=== PATIENT | male | born 1960 | race Caucasian/White ===

== ENCOUNTER 2017-01-11 17:30 | Emergency (ER) | payer OTHER ==
[2017-01-11 17:42] VITALS: O2SAT 98
--- NOTE | 2017-01-11 18:26 | ERPHSYRPT ---
- History of Present Illness Time Seen by Provider: 01/11/17 18:15 Source: patient Exam Limitations: no limitations Patient Subjective Stated Complaint: PT REPORTS HAVING A SORE ON LEFT KNEE TOPHER 1 WK AGO-PICKED IT ET THEN OVER THE LAST FEW DAYS KNEE HAS BECOME SWOLLEN-RED WARM ET TENDER-CLEAR DRAINAGE Triage Nursing Assessment: REDNESS SWELLING NOTED TO LEFT KNEE-PT PINK WARME T DRY-A & O X 3-RESP EASY Physician History: The patient is a 56-year-old male with his complaining of of increasingly red and swollen tender left knee for one week. About a week ago he picked a pimple on his knee and since then it has progressively gotten worse. He has a long history of having abscesses under his armpits and in his groin. He also has a past medical history of hypertension. There was no drainage from the site this week. Method of Injury: other (abscess) Occurred: last week Quality: throbbing Severity of Pain-Max: moderate Severity of Pain-Current: moderate Lower Extremities Pain: knee: left Modifying Factors: Improves With: other (pt tried keflex without improvement) Allergies/Adverse Reactions: sulfamethoxazole [From Bactrim] Allergy (Verified 01/11/17 17:42) trimethoprim [From Bactrim] Allergy (Verified 01/11/17 17:42) Home Medications: Lisinopril/Hydrochlorothiazide [Lisinopril-Hctz 20-25 mg Tab] 1 each PO DAILY [History] Naproxen 500 mg PO BID 05/26/15 [History] Hx Tetanus, Diphtheria Vaccination/Date Given: No Hx Influenza Vaccination/Date Given: No Hx Pneumococcal Vaccination/Date Given: No Immunizations Up to Date: Yes - Review of Systems Constitutional: Fever Eyes: No Symptoms Ears, Nose, & Throat: No Symptoms Respiratory: No Cough, No Dyspnea Cardiac: No Chest Pain, No Edema, No Syncope Abdominal/Gastrointestinal: No Abdominal Pain, No Nausea, No Vomiting, No Diarrhea Genitourinary Symptoms: No Dysuria Musculoskeletal: Joint Swelling, No Back Pain, No Neck Pain Skin: Rash Neurological: No Dizziness, No Focal Weakness, No Sensory Changes Psychological: No Symptoms Endocrine: No Symptoms Hematologic/Lymphatic: No Symptoms Immunological/Allergic: No Symptoms All Other Systems: Reviewed and Negative - Past Medical History Pertinent Past Medical History: Yes Cardiac History: Hypertension Other Medical History: CHRONIC BACK PAIN - Past Surgical History Past Surgical History: No - Social History Smoking Status: Never smoker Exposure to second hand smoke: No Drug Use: none Patient Lives Alone: No - Nursing Vital Signs Nursing Vital Signs: Initial Vital Signs Temperature 98.2 F Temperature Source Oral Pulse Rate 92 Respiratory Rate 20 Blood Pressure [Right Arm] 118/78 Pain Intensity 0 - Physical Exam General Appearance: alert Eyes, Ears, Nose, Throat Exam: moist mucous membranes Neck Exam: non-tender, supple Cardiovascular/Respiratory Exam: chest non-tender, normal breath sounds, regular rate/rhythm, no respiratory distress Gastrointestinal/Abdominal Exam: non-tender, guarding Back Exam: normal inspection, No vertebral tenderness Hips Exam: bilateral: normal inspection Legs Exam: bilateral leg: normal inspection Knees Exam: right knee: normal inspection, left knee: pain, soft tissue tenderness, swelling, other (Examination of the left knee shows a healing scab over the patella with significant surrounding erythema in the soft tissue and edema of the soft tissue both on the patella skin and the surrounding skin. It is not appear to be any joint effusion at this time. The soft tissue above the patella is warm as well.) Ankle Exam: bilateral ankle: normal inspection Foot Exam: bilateral foot: normal inspection Neuro/Tendon Exam: normal sensation, normal motor functions Mental Status Exam: alert, oriented x 3, cooperative Skin Exam: rash (as described for left knee exam) SpO2 Interpretation: normal SpO2: 98 Oxygen Delivery: Room Air Ordered Tests: Active Orders 24 hr Category Date Time Status IV Insertion STAT Care 01/11/17 18:33 Active BMP Stat Lab 01/11/17 18:50 Received CBC W DIFF Stat Lab 01/11/17 18:50 Completed Lactic Acid Urgent Lab 01/11/17 18:33 Completed Medication Summary Generic Name Dose Route Start Last Admin Trade Name Freq PRN Reason Stop Dose Admin Clindamycin HCl/Dextrose 50 mls @ 100 mls/hr 01/11/17 18:57 01/11/17 18:59 Clindamycin-D5w 900 Mg/50 Ml IV 01/11/17 19:26 100 mls/hr STAT ONE Administration Discontinued Medications Generic Name Dose Route Start Last Admin Trade Name Freq PRN Reason Stop Dose Admin Clindamycin Phosphate 600 mg 01/11/17 18:34 01/11/17 18:57 Cleocin Phosphate Iv 600 Mg/4 Ml IV 01/11/17 18:35 Not Given ONCE STA Clindamycin HCl/Dextrose Confirm 01/11/17 18:59 Clindamycin-D5w 900 Mg/50 Ml Administered 01/11/17 19:00 Dose 50 mls @ ud IV .STK-MED ONE Lab/Rad Data: Laboratory Result Diagrams 01/11/17 18:50 Laboratory Results 01/11/17 01/11/17 Range/Units 18:50 18:33 WBC 11.7 H (4.0-10.5) K/mm3 RBC 4.96 (4.1-5.6) M/mm3 Hgb 15.1 (12.5-18.0) gm/dl Hct 45.4 (42-50) % MCV 91.5 (78-100) fl MCH 30.4 (26-32) pg MCHC 33.3 (32-36) g/dl RDW 13.4 (11.5-14.0) % Plt Count 154 (150-450) K/mm3 MPV 12.3 H (6-9.5) fl Gran % 80.6 H (36.0-66.0) % Lymphocytes % 7.7 L (24.0-44.0) % Monocytes % 9.1 (0.0-12.0) % Eosinophils % 2.3 (0.00-5.0) % Basophils % 0.3 (0.0-0.4) % Basophils # 0.03 (0-0.4) Lactic Acid 1.4 (0.4-2.0) - Progress Progress: unchanged Counseled pt/family regarding: lab results, diagnosis, need for follow-up, rad results - Departure Time of Disposition: 19:04 Departure Disposition: Home Clinical Impression: Cellulitis Condition: Stable Critical Care Time: No Additional Instructions: You have an infection of the skin with possible abscess of the left knee. You were given clindamycin 900 mg IV in the ER. Continue to take clindamycin 300 mg 4 times a day for 10 days. Take Tylenol and ibuprofen as needed for pain. Follow-up on Friday or earlier in the ER if the condition worsens. Prescriptions: Clindamycin HCl 1 cap PO QID #40 capsule
[2017-01-11] MEDS ORDERED: Cleocin Phosphate IV 600 MG/4 ML IV STA (18:34)
[2017-01-11 18:54] LABS: BASOPHIL % 0.3 % (0.0-0.4); Eosinophil % 2.3 % (0.00-5.0); Granulocytes % 80.6 % (36.0-66.0); Lymphocytes % 7.7 % (24.0-44.0); Mean Cell Volume 91.5 fl (78-100); Mean Corpuscular Hemoglobin 30.4 pg (26-32); Mean Platelet Volume 12.3 fl (6-9.5); Monocytes % 9.1 % (0.0-12.0); Platelet Count 154 K/mm3 (150-450); Red Blood Count 4.96 M/mm3 (4.1-5.6); Red Cell Distribution Width 13.4 % (11.5-14.0); White Blood Count 11.7 K/mm3 (4.0-10.5)
[2017-01-11] MEDS ORDERED: CLINDAMYCIN-D5W 900 MG/50 ML*** 50 ML IV ONE ×2 (18:57→18:59)
[2017-01-11 19:08] LABS: ANION GAP 11.7 MEQ/L (5-15); BLOOD UREA NITROGEN 15 mg/dL (9-20); CHLORIDE 102 mEq/L (98-107); Carbon Dioxide 28.9 mEq/L (21-32); Glucose 111 MG/DL (70-110); Potassium 3.9 mEq/L (3.5-5.1); SODIUM 139 mEq/L (136-145)
[2017-01-11] MEDS ORDERED: CLEOCIN 150 MG CAPSULE PO ONE ×2 (20:02→20:04)
[2017-01-11 20:09] VITALS: BP 136/78; PULSE 108
[2017-01-11] MEDS ORDERED: CLEOCIN 150 MG CAPSULE ONE (20:11)
== END 2017-01-11 20:32 | disposition home or self-care (01) ==
LOC: ED 17:30
DX: L03.116 Cellulitis of left lower limb (principal); M25.462 Effusion, left knee; I10 Essential (primary) hypertension; Z79.899 Other long term (current) drug therapy; M54.9 Dorsalgia, unspecified; G89.29 Other chronic pain
CPT/HCPCS: 36000; 36415; 80048; 83605; 85025; 96360; 96365; 99284; A9270-GY